=== PATIENT | female | born 1985 | race African-American/Black ===

== ENCOUNTER 2019-01-02 22:04 | Emergency (ER) | payer OTHER ==
[~2019-01-02] VITALS: Ht 152.4 cm; Wt 92.1 kg
[2019-01-02 22:52] LABS: ABSOLUTE NEUTROPHILS 3.2 thou/uL (1.4-8.2); BASOPHILS 0.7 % (0.0-2.0); EOSINOPHILS 1.5 % (0.0-3.0); HEMATOCRIT 38.7 % (37.0-47.0); HEMOGLOBIN 12.8 gm/dL (12.0-15.0); MCH 26.8 pg (26.0-34.0); MCHC 33.1 g/dL (28.0-37.0); MONOCYTES 7.1 % (1.0-8.0); PLATELET COUNT 252 thou/uL (150-400); POLYS 52.7 % (36.0-66.0); RBC 4.77 mil/uL (4.20-5.00); RDW 14.1 % (10.5-14.5); WBC 6.1 thou/uL (4.0-11.0)
[2019-01-02 23:00] LABS: ANION GAP 8 mmol/L (7-16); BUN 7 mg/dL (7-18); CALCIUM 8.9 mg/dL (8.5-10.1); CHLORIDE 103 mmol/L (98-107); CO2 26 mmol/L (21-32); CREATININE 0.9 mg/dL (0.6-1.0); GLUCOSE 106 mg/dL (74-106); POTASSIUM 3.6 mmol/L (3.5-5.1); SODIUM 137 mmol/L (136-145)
[2019-01-02 23:07] LABS: ALBUMIN 3.4 g/dL (3.4-5.0); MAGNESIUM 1.8 mg/dL (1.8-2.4); SGOT 17 U/L (15-37); SGPT 21 U/L (30-65); TOTAL BILIRUBIN 0.1 mg/dL (<0.1-1.0); TOTAL PROTEIN 7.8 g/dL (6.4-8.2); TROPONIN-I <0.06 ng/mL (<0.06)
[2019-01-02 23:08] LABS: AMP/METHAMP Negative (Negative); BARBITURATES Negative (Negative); BENZODIAZEPINES Negative (Negative); COCAINE Negative (Negative); METHADONE Negative (Negative); OPIATES Negative (Negative); PCP Negative (Negative)
[2019-01-03] MEDS ORDERED: NAPROSYN500 MG PO (00:14)
[2019-01-03 00:50] VITALS: BP 146/96
--- NOTE | 2019-01-03 09:20 | EKG ---
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 : 1985 Requested By: Bruno Sahu Order Number: [id number] MD: Merritt Garcia Measurements Intervals [place] Rate: 94 P: 42 WA: 144 QRS: -6 QRSD: 95 T: 18 QT: 361 QTc: 452 Interpretive Statements Sinus rhythm Possible Inferior infarct, old Nonspecific T wave abnormality No previous ECG available for comparison Electronically Signed On 01-03-2019 9:19:57 CDT by Merritt Garcia [email or web address] ��������������������������������������������� <ELECTRONICALLY SIGNED> ���������������������������������������� By: Merritt Garcia MD, LOCATED WITHIN [facility] ��������������������������������������������� 01/03/19 0919 2214 2214 Merritt Garcia MD, FACC /EPI
== END 2019-01-03 00:51 | disposition home or self-care (01) ==
LOC: ER 22:04
PROVIDERS: Emergency Medicine
DX: R07.89 Other chest pain (principal); Z86.11 Personal history of tuberculosis